=== PATIENT | female | born 1975 | race Caucasian/White ===

== ENCOUNTER 2024-07-03 09:26 | Day surgery (SDC) | payer BC ==
[2024-07-03] MEDS: Lactated Ringers 1,000 ML IV SCH (10:00)
[2024-07-03] MEDS ORDERED: Propofol 200 MG/20 ML SDV ONE (10:58)
[2024-07-03] MEDS ORDERED: dexmedeTOMIDine HCl 200 MCG/2 ML SDV ONE (11:10)
== END 2024-07-03 12:05 | disposition home or self-care (01) ==
LOC: MW.SDS 09:26
PROVIDERS: ATTEND Surgery
DX: K29.50 Unspecified chronic gastritis without bleeding (principal); K21.9 Gastro-esophageal reflux disease without esophagitis; R13.10 Dysphagia, unspecified; E11.9 Type 2 diabetes mellitus without complications; E78.00 Pure hypercholesterolemia, unspecified; I10 Essential (primary) hypertension; E66.9 Obesity, unspecified; Z88.1 Allergy status to other antibiotic agents; Z88.8 Allergy status to other drugs, medicaments and biological substances; Z79.899 Other long term (current) drug therapy; Z87.891 Personal history of nicotine dependence; Z68.31 Body mass index [BMI] 31.0-31.9, adult
CPT/HCPCS: 43239; J2704; J7120; 00731